=== PATIENT | male | born 1990 | race American Indian/Alaskan Native ===

== ENCOUNTER 2017-12-03 11:43 | Emergency (ER) | payer SELFPAY ==
[2017-12-03 12:03] VITALS: BP 99/54
== END 2017-12-03 12:03 | disposition left against medical advice (07) ==
LOC: ED 11:43
DX: R07.9 Chest pain, unspecified (principal); Z53.21 Procedure and treatment not carried out due to patient leaving prior to being seen by health care provider
CPT/HCPCS: 93005; 93010

== ENCOUNTER 2017-12-03 21:32 | Emergency (ER) | payer SELFPAY ==
[2017-12-03 22:17] VITALS: BP 106/53
[2017-12-03] MEDS ORDERED: ASPIRIN PO ONE (22:17)
[2017-12-03 23:29] LABS: Hematocrit 40.5 % (35.5-45.6); Hemoglobin 13.5 gm/dl (11.8-15.2); Mean Corpuscular HGB Conc 33 % (32-34); Mean Corpuscular Hemoglobin 32 pg (28-32); Mean Corpuscular Volume 95 fl (84-94); Platelet Count 232 K/mm3 (140-440); Red Blood Count 4.27 M/mm3 (3.65-5.03); Red Cell Distribution Width 11.9 % (13.2-15.2)
[2017-12-03 23:49] LABS: BUN/Creatinine Ratio 17; Blood Urea Nitrogen 17 mg/dL (9-20); Calcium 9.5 mg/dL (8.4-10.2); Hemolysis Index 13
[2017-12-04 02:57] LABS: Basophils % (Manual) 0 % (0.0-1.8); Total Cells Counted 100
[2017-12-04 02:58] LABS: Platelet Estimate Consistent w Auto
== END 2017-12-04 11:58 | disposition left against medical advice (07) ==
LOC: ED 21:32
DX: R07.89 Other chest pain (principal); Z53.21 Procedure and treatment not carried out due to patient leaving prior to being seen by health care provider
CPT/HCPCS: 36415; 80048; 84484; 85007; 85025

== ENCOUNTER 2017-12-06 08:48 | Emergency (ER) | payer SELFPAY ==
[2017-12-06 09:09] VITALS: BP 129/66
--- NOTE | 2017-12-06 09:48 | Emergency Department Report ---
ED Recheck HPI - General Chief Complaint: Extremity Problem,Nontraumatic Stated Complaint: CHEST/BACK PAIN Time Seen by Provider: 12/06/17 09:38 Source: patient, family Mode of arrival: Ambulatory Limitations: No Limitations, Physical Limitation - History of Present Illness Initial Comments: Patient reports that he was out of work for 2 days as was having a rash left shoulder and upper chest pain. He stated that his pain is worse when he moves around. He is not having any pain at present. He said he was out of work for 2 days and he needed excuse to go back to work. He said he needed a couple days rest because he is under a lot of stress. Denies any nausea vomiting, dizziness or blurred vision. Denies any back pain. Denies any cough or shortness of breath. Denies any medical problem. Surgical history of appendicitis to me. Last time he had pain was yesterday in the morning. No medication taken and at present pain is 0/10. He reported to triage that he was having pain in his left shoulder at 410 but patient said he is not having any pain he is here to get a work excuse because he missed yesterday and today at work and needs an excuse to go back on Saturday. His history of crack, cocaine or Any other illicit drug use. MD Complaint: other (here for work excuse) Onset/Timin -: days(s) Initial Visit For: other Returns Today for: needs work/school note Symptoms Since Prior Visit: no new symptoms Context: other (none. Was sick yesterday) Associated Symptoms: none. denies: fever, chills, chest pain, shortness of breath, rash, malaise, nasuea, abdominal pain Treatments Prior to Arrival: other (none) - Related Data Home Medications Medication Instructions Recorded Confirmed Last Taken No Known Home Medications [No 12/06/17 12/06/17 Unknown Reported Home Medications] Allergies Allergy/AdvReac Type Severity Reaction Status Date / Time No Known Allergies Allergy Verified 12/04/17 12:11 ED Review of Systems ROS: Stated complaint: CHEST/BACK PAIN Other details as noted in HPI Constitutional: denies: chills, fever Eyes: denies: eye pain, eye discharge, vision change ENT: denies: ear pain, throat pain, congestion Respiratory: denies: cough, shortness of breath, SOB with exertion, SOB at rest , stridor, wheezing Cardiovascular: chest pain (portable chest pain yesterday but none today). denies: palpitations, dyspnea on exertion, edema, syncope Gastrointestinal: denies: abdominal pain, nausea, vomiting, diarrhea, constipation, hematemesis Genitourinary: denies: urgency, dysuria Musculoskeletal: arthralgia (shoulder pain yesterday but none today). denies: back pain, joint swelling, myalgia Skin: denies: rash, lesions Neurological: denies: headache, weakness, numbness, paresthesias, confusion, abnormal gait, vertigo ED Past Medical Hx - Past Medical History Previous Medical History?: No - Surgical History Past Surgical History?: Yes Hx Appendectomy: Yes - Family History Family history: no significant - Social History Smoking Status: Current Every Day Smoker Substance Use Type: None - Medications Home Medications: Home Medications Medication Instructions Recorded Confirmed Last Taken Type No Known Home Medications [No 12/06/17 12/06/17 Unknown History Reported Home Medications] ED Physical Exam - General Limitations: No Limitations General appearance: alert, in no apparent distress - Head Head exam: Present: atraumatic, normocephalic - Eye Eye exam: Present: normal appearance, PERRL, EOMI Pupils: Present: normal accommodation - ENT ENT exam: Present: normal exam, normal orophraynx, mucous membranes moist, TM's normal bilaterally, normal external ear exam - Neck Neck exam: Present: normal inspection, full ROM, other (no C-spine tenderness). Absent: tenderness, meningismus, lymphadenopathy - Respiratory Respiratory exam: Present: normal lung sounds bilaterally. Absent: respiratory distress, wheezes, rales, rhonchi, stridor, chest wall tenderness, accessory muscle use - Cardiovascular Cardiovascular Exam: Present: regular rate, normal rhythm, normal heart sounds. Absent: systolic murmur, diastolic murmur - GI/Abdominal GI/Abdominal exam: Present: soft, normal bowel sounds. Absent: distended, tenderness, guarding, rebound, rigid, organomegaly - Extremities Exam Extremities exam: Present: normal inspection, full ROM, normal capillary refill , other (No cce. + 2 pulses in all extremities, no neurovascular compromise. No joint deformity, crepitus or effusion. Full range of motion to all extremities including shoulders.). Absent: tenderness, pedal edema, joint swelling, calf tenderness - Back Exam Back exam: Present: normal inspection, full ROM, other (relates that any difficulties). Absent: tenderness, CVA tenderness (R), CVA tenderness (L), muscle spasm, paraspinal tenderness, vertebral tenderness, rash noted - Neurological Exam Neurological exam: Present: alert, oriented X3, normal gait, reflexes normal. Absent: motor sensory deficit - Psychiatric Psychiatric exam: Present: normal affect, normal mood - Skin Skin exam: Present: warm, dry, intact, normal color. Absent: rash ED Course Vital Signs 12/06/17 09:05 Temperature 97.7 F Pulse Rate 74 Respiratory 16 Rate Blood Pressure 129/66 O2 Sat by Pulse 99 Oximetry - Reevaluation(s) Reevaluation #1: 12/06/17 10:40 ASIS stable throughout ED course he did not want anything for pain. ED Recheck MDM - Medical Decision Making This is a 27-year-old male here reporting that he had left shoulder and chest pain yesterday which has since resolved. He does not have any medical history or denies any use of illicit drug use. Denies any history of any heart disease. Patient is here because he says that he took 2 days off and he has to go back to work on Saturday and he needs a work excuse. Pain score is 0-10 at present. Patient was evaluated by myself and physical exam is normal. Patient is stable he doesn't have a primary care physician and I discussed with him that I'll refer him to [facility]. His vital signs are stable he is afebrile and he has not experienced any pain at present. Discharged home in stable condition to follow up at [facility] as needed. I discussed with him if he has any chest pain does radiate into shoulder he needs to return to the emergency room. Critical care attestation.: If time is entered above; I have spent that time in minutes in the direct care of this critically ill patient, excluding procedure time. ED Disposition Clinical Impression: Normal exam, Encounter to obtain excuse from work Disposition: DC-01 TO HOME OR SELFCARE Is pt being admited?: No Does the pt Need Aspirin: No Condition: Stable Instructions: Normal Exam (ED) Additional Instructions: Please follow up with [facility] as instructed Inrease fluid intake If you have any history of chest pain radiating to shoulder please return to the emergency room Referrals: PRIMARY CARE, [Primary Care Provider] - 12/09/17 [facility] [Outside] - 12/09/17 Forms: Work/School Release Form(ED)
== END 2017-12-06 10:53 | disposition home or self-care (01) ==
LOC: ED 08:48
DX: R21 Rash and other nonspecific skin eruption (principal); Z90.89 Acquired absence of other organs; F17.200 Nicotine dependence, unspecified, uncomplicated
CPT/HCPCS: 99282